=== PATIENT | male | born 1965 | race Caucasian/White ===

== ENCOUNTER → 2020-11-25 | Outpatient (CLI) | payer OTHER ==
[2020-11-28 22:10] LABS: HSV-1 DNA Negative (Negative); HSV-2 DNA Negative (Negative)
== END | disposition home or self-care (01) ==
LOC: LAB SHORT 11:10 → PLD 11:10
PROVIDERS: Physician Assistant Medical
DX: R21 Rash and other nonspecific skin eruption (principal); L21.8 Other seborrheic dermatitis; B02.9 Zoster without complications; L57.0 Actinic keratosis
CPT/HCPCS: 87529; 87798

== ENCOUNTER 2023-01-29 07:21 | Day surgery (SDC) | payer OTHER ==
[2023-01-29] VITALS (15 sets, daily range): BP systolic 101–167; BP diastolic 71–105
[~2023-01-29] VITALS: Ht 177.8 cm; Wt 95.6 kg
[~2023-01-29 07:21] MED LIST: LISI20 PO; MELO7.5 PO
--- NOTE | 2023-01-29 08:50 | NUR ---
Ambulatory in Day Surgery. Patient states colon prep results light yellow. History, Chart, Medications and Allergies reviewed before start of procedure. Patient confirms NPO status and agrees with scheduled procedure.
--- NOTE | 2023-01-29 09:04 | NUR ---
01/29/23 0904 Guillaume Ramírez HISTORY, CHART, MEDICATIONS AND ALLERGIES REVIEWED BEFORE START OF PROCEDURE. PATIENT CONFIRMS NPO STATUS AND AGREES WITH SCHEDULED PROCEDURE. 3-LEAD EKG REVIEWED WITH PHYSICIAN PRIOR TO START OF PROCEDURE. MONITOR INTACT WITH CONTINUOUS PULSE OXIMETRY,CAPNOGRAPHY, 3-LEAD EKG, INTERMITTENT BP. SUPPLEMENTAL O2 TO BE TITRATED THROUGHOUT PROCEDURE TO MAINTAIN O2 SATURATION ABOVE 90%. PATIENT DETERMINED TO BE ASA APPROPRIATE FOR PROPOFOL SEDATION PRIOR TO START OF PROCEDURE BY
--- NOTE | 2023-01-29 09:42 | NUR ---
DISCHARGE NOTE PT A&OX4, BREATHING RA, REFUSED FLUIDS, DRESSED INDEPENDENTLY IN ROOM C RN AT BEDSIDE. ABDOMEN IS SOFT AND NON-TENDER. Discharge instructions reviewed with patient. Patient verbalizes understanding. Copy given to patient to take home.ANIL, PT DISCHARGED FROM [facility], WENT BACK TO ADMITTING TO GET AN XRAY DONE. PT INSTRUCTED TO CALL [facility] PRIOR TO LEAVING HOSPITAL TO ENSURE RIDE HOME.
== END 2023-01-29 09:48 | disposition home or self-care (01) ==
LOC: ORSCMMR 07:21 → ORD 08:30 → ORSCMMR 08:30
PROVIDERS: Internal Medicine Gastroenterology
PROC: 0DBL8ZX Excision of Transverse Colon, Via Natural or Artificial Opening Endoscopic, Diagnostic (ICD-10-PCS; principal; 2023-01-29 08:30)
DX: Z12.11 Encounter for screening for malignant neoplasm of colon (principal); Z83.71 Family history of colonic polyps; D12.3 Benign neoplasm of transverse colon; I10 Essential (primary) hypertension; Z72.0 Tobacco use
CPT/HCPCS: 88305; J2704; J7120